=== PATIENT | female | born 1985 | race Caucasian/White ===

== ENCOUNTER 2018-07-12 20:20 | Emergency (ER) | payer OTHER ==
[2018-07-12 21:34] LABS: BASO % 0.7 % (0.0-1.0); EOS % 0.7 % (0.0-3.0); HEMATOCRIT 37.9 % (36.0-47.0); HEMOGLOBIN 13.5 g/dl (12.0-15.5); IMMATURE GRANULOCYTE % 0.3 % (0-3.0); LYMPH # 0.9 10^3/uL (1.5-4.5); LYMPH % 30.7 % (24.0-44.0); MEAN CORPUSCULAR HGB CONC 35.6 g/dl (32.0-36.5); MEAN CORPUSCULAR VOLUME 98.2 fl (80.0-96.0); MONO # 0.4 10^3/uL (0.0-0.8); MONO % 11.8 % (0.0-5.0); NEUTROPHILS # 1.7 10^3/uL (1.8-7.7); NEUTROPHILS % 55.8 % (36.0-66.0); RED BLOOD COUNT 3.86 10^6/uL (4.00-5.40); RED CELL DISTRIBUTION WIDTH 17.3 % (11.5-14.5)
[2018-07-12] MEDS: NS 1,000 ML IV (21:39)
[2018-07-12] MEDS: MORPHINE 4 MG/ML 1ML VIAL/SYRINGE (J2270) IV (21:39)
[2018-07-12] MEDS: LORazepam 2 MG/ML VIAL (J2060) IV (21:40)
[2018-07-12] MEDS: ONDANSETRON 4MG/2ML VIAL (J2405) IV (21:40)
[2018-07-12 21:41] LABS: KETONE, URINE AUTO RFX NEGATIVE (NEGATIVE); MUCUS, URINE RFX SMALL (NEGATIVE); NITRITE, URINE AUTO RFX NEGATIVE (NEGATIVE); RBC, URINE AUTO RFX 2 /HPF (0-3); SPECIFIC GRAVITY UR AUTO RFX 1.014 (1.002-1.035); SQUAM EPITHELIAL CELL UR AURFX 2 /HPF (0-6); WBC, URINE AUTO RFX 6 /HPF (0-3)
[2018-07-12 21:42] LABS: LEUKOCYTE ESTERASE UR AUTO RFX TRACE (NEGATIVE)
[2018-07-12 21:46] LABS: INR 0.97
[2018-07-12 21:48] LABS: CONTROL LINE HCG INT CTR LINE PRESENT; HCG, SERUM QUALITATIVE NEGATIVE (NEGATIVE)
[2018-07-12 21:54] LABS: ALBUMIN 3.5 GM/DL (3.2-5.2); ALBUMIN/GLOBULIN RATIO 0.95 (1.00-1.93); ALKALINE PHOSPHATASE 178 U/L (45-117); ALT/SGPT 181 U/L (12-78); ANION GAP 13 MEQ/L (8-16); AST/SGOT 477 U/L (7-37); BILIRUBIN,DIRECT 1.1 MG/DL (0.0-0.2); BLOOD UREA NITROGEN 6 MG/DL (7-18); CALCIUM LEVEL 8.4 MG/DL (8.5-10.1); CARBON DIOXIDE LEVEL 28 MEQ/L (21-32); CHLORIDE LEVEL 97 MEQ/L (98-107); CREATININE FOR GFR 0.79 MG/DL (0.55-1.30); GLOMERULAR FILTRATION RATE > 60.0 (>60); GLUCOSE, FASTING 117 MG/DL (70-100); LIPASE 114 U/L (73-393); POTASSIUM SERUM 3.7 MEQ/L (3.5-5.1); SODIUM LEVEL 138 MEQ/L (136-145); TOTAL PROTEIN 7.2 GM/DL (6.4-8.2)
[2018-07-12 22:06] LABS: PLATELET COUNT, AUTOMATED 88 10^3/uL (150-450)
[2018-07-12 22:25] LABS: LACTIC ACID SEPSIS PROTOCOL 3.8 MMOL/L (0.4-2.0)
[2018-07-12] MEDS ORDERED: GASTROGRAFIN SOLUTION 30ML (Q9963) As Ordered (23:20)
[2018-07-12] MEDS: GASTROGRAFIN SOLUTION 30ML PO (23:23)
[2018-07-12 23:52] LABS: ETHYL ALCOHOL (ETHANOL) 0.025 % (0.000-0.010)
[2018-07-13 00:11] LABS: AMPHETAMINES LEVEL URINE NEGATIVE (NEGATIVE); BARBITURATES URINE NEGATIVE (NEGATIVE); BENZODIAZEPINES URINE NEGATIVE (NEGATIVE); CANNABINOIDS URINE NEGATIVE (NEGATIVE); COCAINE METABOLITE URINE NEGATIVE (NEGATIVE); METHADONE URINE NEGATIVE (NEGATIVE); OPIATES URINE POSITIVE (NEGATIVE); PHENCYCLIDINE URINE NEGATIVE (NEGATIVE)
[2018-07-13] MEDS: GASTROGRAFIN SOLUTION 30ML PO (00:20)
[2018-07-13] MEDS ORDERED: ISOVUE-370 76% 100ML VIAL (Q9967) As Ordered (00:56)
[2018-07-13 01:26] LABS: CHLAMYDIA DNA AMPLIFICATION NEGATIVE (NEGATIVE); GC DNA AMPLIFICATION NEGATIVE (NEGATIVE)
[2018-07-13] MEDS: OXAZEPAM 10 MG CAP PO (04:53)
== END 2018-07-13 04:59 | disposition home or self-care (01) ==
LOC: M ED 07-13 04:59
DX: K29.20 Alcoholic gastritis without bleeding (principal); N76.0 Acute vaginitis; Z88.0 Allergy status to penicillin
CPT/HCPCS: J2270

== ENCOUNTER 2018-11-24 11:18 | Emergency (ER) | payer OTHER ==
[~2018-11-24] VITALS: Ht 167.6 cm; Wt 63.6 kg
[~2018-11-24 11:18] MED LIST: METR0.759 PV; OXAZ15CA4 PO
[2018-11-24] MEDS ORDERED: LORazepam 2 MG/ML VIAL (J2060) IV STA (11:54)
[2018-11-24] MEDS ORDERED: ONDANSETRON 4MG/2ML VIAL (J2405) IV ONE (12:00)
[2018-11-24] MEDS ORDERED: NS 1,000 ML IV ONE (12:00)
[2018-11-24] MEDS ORDERED: PANTOPRAZOLE 40MG INJ (PROTONIX) (C9113) IV ONE (12:00)
[2018-11-24 12:17] LABS: BASO % 1.4 % (0.0-1.0); EOS % 0.3 % (0.0-3.0); HEMATOCRIT 33.8 % (36.0-47.0); HEMOGLOBIN 12.2 g/dl (12.0-15.5); LYMPH # 0.6 10^3/uL (1.5-4.5); LYMPH % 19.8 % (24.0-44.0); MEAN CORPUSCULAR HGB CONC 36.1 g/dl (32.0-36.5); MEAN CORPUSCULAR VOLUME 105.3 fl (80.0-96.0); MONO # 0.2 10^3/uL (0.0-0.8); MONO % 7.5 % (0.0-5.0); NEUTROPHILS # 2.1 10^3/uL (1.8-7.7); NEUTROPHILS % 70.7 % (36.0-66.0); RED BLOOD COUNT 3.21 10^6/uL (4.00-5.40); WHITE BLOOD COUNT 2.9 10^3/uL (4.0-10.0)
[2018-11-24 12:18] LABS: PLATELET COUNT, AUTOMATED 76 10^3/uL (150-450)
[2018-11-24 12:28] LABS: URINE PREG TEST NEGATIVE (NEGATIVE)
[2018-11-24 12:42] LABS: ALBUMIN 4.4 GM/DL (3.2-5.2); ALT/SGPT 230 U/L (12-78); BILIRUBIN,TOTAL 3.2 MG/DL (0.2-1.0); BLOOD UREA NITROGEN 5 MG/DL (7-18); CALCIUM LEVEL 9.3 MG/DL (8.5-10.1); CARBON DIOXIDE LEVEL 30 MEQ/L (21-32); CHLORIDE LEVEL 92 MEQ/L (98-107); CREATININE FOR GFR 1.02 MG/DL (0.55-1.30); GLOMERULAR FILTRATION RATE > 60.0 (>60); GLUCOSE, FASTING 111 MG/DL (70-100); LIPASE 375 U/L (73-393); POTASSIUM SERUM 3.4 MEQ/L (3.5-5.1); SODIUM LEVEL 134 MEQ/L (136-145); TOTAL PROTEIN 8.5 GM/DL (6.4-8.2)
[2018-11-24 13:44] LABS: ETHYL ALCOHOL (ETHANOL) < 0.003 % (0.000-0.010); MAGNESIUM LEVEL 1.6 MG/DL (1.8-2.4)
[2018-11-24 14:15] LABS: AMPHETAMINES LEVEL URINE NEGATIVE (NEGATIVE); BARBITURATES URINE NEGATIVE (NEGATIVE); BENZODIAZEPINES URINE NEGATIVE (NEGATIVE); CANNABINOIDS URINE POSITIVE (NEGATIVE); COCAINE METABOLITE URINE NEGATIVE (NEGATIVE); METHADONE URINE NEGATIVE (NEGATIVE); OPIATES URINE NEGATIVE (NEGATIVE); PHENCYCLIDINE URINE NEGATIVE (NEGATIVE)
--- NOTE | 2018-11-24 14:27 | REP ---
RIGHT UPPER QUADRANT ULTRASOUND: Real-time sonographic evaluation of right upper quadrant performed. Gallbladder demonstrates no evidence of intraluminal sludge or calculi, wall thickening, or pericholecystic fluid. There is no intrahepatic or extrahepatic biliary dilatation, common bile duct measuring 5 mm. Liver is somewhat enlarged, and there is diffuse increased echotexture suggesting diffuse fatty infiltration. No gross mass is seen in the liver or pancreas. Right kidney demonstrates no hydronephrosis with normal size 10.5 cm in length. IMPRESSION: Diffuse fatty infiltration of the liver with mild hepatomegaly. Otherwise negative right upper quadrant ultrasound. Electronically Signed by Devon Vigil MD 11/25/2018 10:25 A
[2018-11-24] MEDS ORDERED: OXAZ30CA2 PO (14:45)
[2018-11-24] MEDS ORDERED: ONDA4TAB6 PO (14:46)
[2018-11-24] MEDS ORDERED: PROT1TAB2 PO (14:46)
[2018-11-24 14:59] VITALS: BP 131/65
[2018-11-25 10:54] LABS: HEPATITIS B SURFACE ANTIGEN NEGATIVE (NEGATIVE)
[2018-11-25 12:34] LABS: HEPATITIS C VIRUS ABY INDEX 0.1 INDEX (<0.8)
[2018-11-25 12:35] LABS: HEPATITIS B CORE ANTIBODY IGM NEGATIVE (NEGATIVE)
[2018-11-25 12:37] LABS: HEPATITIS A ANTIBODY IGM NEGATIVE (NEGATIVE)
== END 2018-11-24 15:08 | disposition home or self-care (01) ==
LOC: M ED 11:18
DX: F10.239 Alcohol dependence with withdrawal, unspecified (principal); K29.20 Alcoholic gastritis without bleeding; Z79.899 Other long term (current) drug therapy; Z88.0 Allergy status to penicillin; F17.210 Nicotine dependence, cigarettes, uncomplicated
CPT/HCPCS: 76705; 80048; 80076; 80307; 83690; 83735; 84703; 85025; 85049; 85055; 86705; 86709; 86803; 87340; 96374; 96375; 99284; C9113; G0480; J2060; J2405